=== PATIENT | male | born 1960 | race Caucasian/White ===

== ENCOUNTER → 2019-05-07 09:04 | Outpatient (BNVA) | payer OTHER, SELFPAY | PROVIDERS: Family Provider Family Medicine; PCP Family Medicine; Visit Provider Internal Medicine Rheumatology | DX: M06.00 Rheumatoid arthritis without rheumatoid factor, unspecified site (principal); Z79.899 Other long term (current) drug therapy; E27.1 Primary adrenocortical insufficiency; Z79.52 Long term (current) use of systemic steroids | CPT/HCPCS: 36415; 80076; 82565; 85025; 85651; 86140; 99214 ==

== ENCOUNTER → 2019-08-14 12:10 | Outpatient (BNVA) | payer OTHER, SELFPAY | PROVIDERS: Family Provider Family Medicine; PCP Family Medicine; Visit Provider Internal Medicine Rheumatology | DX: Z79.899 Other long term (current) drug therapy (principal) | CPT/HCPCS: 36415; 80076; 82565; 85025; 85651; 86140 ==

== ENCOUNTER → 2019-11-01 09:48 | Outpatient (BNVA) | payer OTHER, SELFPAY | PROVIDERS: Family Provider Family Medicine; PCP Family Medicine; Visit Provider Internal Medicine Rheumatology | DX: Z79.899 Other long term (current) drug therapy (principal) | CPT/HCPCS: 36415; 80076; 82565; 85025; 85651; 86140 ==

== ENCOUNTER → 2019-11-07 10:08 | Outpatient (BNVA) | payer OTHER, SELFPAY | PROVIDERS: Family Provider Family Medicine; PCP Family Medicine; Visit Provider Internal Medicine Rheumatology | DX: M06.00 Rheumatoid arthritis without rheumatoid factor, unspecified site (principal); Z79.899 Other long term (current) drug therapy; E27.1 Primary adrenocortical insufficiency; M81.0 Age-related osteoporosis without current pathological fracture; Z79.52 Long term (current) use of systemic steroids | CPT/HCPCS: 99214 ==

== ENCOUNTER → 2019-12-12 09:43 | Outpatient (BNVA) | payer OTHER, SELFPAY | PROVIDERS: Family Provider Family Medicine; PCP Family Medicine; Visit Provider Internal Medicine Rheumatology | DX: Z79.899 Other long term (current) drug therapy (principal) | CPT/HCPCS: 36415; 80076; 82565; 85025; 85651; 86140 ==

== ENCOUNTER → 2020-03-24 12:45 | Outpatient (BNVA) | payer OTHER, SELFPAY | PROVIDERS: Family Provider Family Medicine; PCP Family Medicine; Visit Provider Internal Medicine Rheumatology | DX: Z79.899 Other long term (current) drug therapy (principal) | CPT/HCPCS: 36415; 80076; 82565; 85025; 85651; 86140 ==

== ENCOUNTER → 2020-05-05 14:56 | Outpatient (BNVA) | payer OTHER, SELFPAY | PROVIDERS: Family Provider Family Medicine; PCP Family Medicine; Visit Provider Internal Medicine Rheumatology | DX: M06.00 Rheumatoid arthritis without rheumatoid factor, unspecified site (principal); E27.1 Primary adrenocortical insufficiency; Z79.899 Other long term (current) drug therapy; Z79.52 Long term (current) use of systemic steroids; M81.0 Age-related osteoporosis without current pathological fracture; Z85.46 Personal history of malignant neoplasm of prostate; Z87.891 Personal history of nicotine dependence | CPT/HCPCS: 99214 ==

== ENCOUNTER → 2020-10-21 09:14 | Outpatient (BNVA) | payer OTHER, SELFPAY | PROVIDERS: Family Provider Family Medicine; PCP Family Medicine; Visit Provider Internal Medicine Rheumatology | DX: E27.1 Primary adrenocortical insufficiency (principal); M06.00 Rheumatoid arthritis without rheumatoid factor, unspecified site; Z71.89 Other specified counseling; Z79.899 Other long term (current) drug therapy | CPT/HCPCS: 36415; 80076; 82565; 85025; 86140 ==

== ENCOUNTER → 2020-10-29 14:39 | Outpatient (BNVA) | payer OTHER, SELFPAY | PROVIDERS: Family Provider Family Medicine; PCP Family Medicine; Visit Provider Internal Medicine Rheumatology | DX: M06.00 Rheumatoid arthritis without rheumatoid factor, unspecified site (principal); Z79.899 Other long term (current) drug therapy; Z79.52 Long term (current) use of systemic steroids; E27.1 Primary adrenocortical insufficiency; M81.0 Age-related osteoporosis without current pathological fracture; Z85.46 Personal history of malignant neoplasm of prostate; Z87.891 Personal history of nicotine dependence | CPT/HCPCS: 99214 ==

== ENCOUNTER → 2021-01-28 13:07 | Outpatient (BNVA) | payer OTHER, SELFPAY | PROVIDERS: Family Provider Family Medicine; PCP Family Medicine; Visit Provider Internal Medicine Rheumatology | DX: E27.1 Primary adrenocortical insufficiency (principal); Z71.89 Other specified counseling; Z79.899 Other long term (current) drug therapy | CPT/HCPCS: 36415; 80076; 82565; 85025; 86140 ==

== ENCOUNTER → 2021-04-02 09:16 | Outpatient (BNVA) | payer OTHER, SELFPAY | PROVIDERS: Family Provider Family Medicine; PCP Family Medicine; Visit Provider Internal Medicine Rheumatology | DX: Z79.899 Other long term (current) drug therapy (principal); M06.00 Rheumatoid arthritis without rheumatoid factor, unspecified site | CPT/HCPCS: 36415; 80076; 82565; 85025; 86140 ==

== ENCOUNTER 2021-08-17 13:18 | Outpatient (CLI) | payer OTHER, SELFPAY ==
[2021-08-17 14:22] LABS: Basophils % 0.4 %; Eosinophils # 0.3 10^3/uL (0.0-0.8); Eosinophils % 4.3 %; Hematocrit 39.5 % (42.0-52.0); Hemoglobin 13.1 g/dL (11.7-16.6); Lymphocytes # 1.4 10^3/uL (0.8-4.8); Lymphocytes % 19.4 %; Mean Corpuscular HGB Conc 33.2 g/dL (30.0-36.0); Mean Corpuscular Hemoglobin 29.5 pg (28.0-34.0); Mean Platelet Volume 13.5 fL (7.4-10.4); Monocytes # 0.9 10^3/uL (0.2-0.9); Monocytes % 12.3 %; Neutrophils # 4.66 10^3/uL (1.8-7.7); Neutrophils % 63.3 %; Nucleated Red Blood Cells % 0 %; Platelet Count 161 10^3/cmm (130-400); Red Blood Count 4.44 10^6/uL (4.1-5.3); White Blood Count 7.4 10^3/uL (4.0-10.0)
[2021-08-17 14:50] LABS: Alanine Aminotransferase 14 U/L (0-41); Albumin Level 4.1 g/dL (3.5-5.2); Alkaline Phosphatase 107 IU/L (40-130); Aspartate Amino Transferase 20 U/L (0-40); Globulin 2.7 g/dL (1.3-4.6); Glomerular Filtration Rate 98.6 mL/min (90-130); Total Bilirubin 0.2 mg/dL (0.15-1.2); Total Protein 6.8 g/dL (6.6-8.7)
== END 2021-08-17 13:19 | disposition home or self-care (01) ==
LOC: LAB 13:20
PROVIDERS: Family Provider Family Medicine; PCP Family Medicine; Visit Provider Internal Medicine Rheumatology
DX: M06.00 Rheumatoid arthritis without rheumatoid factor, unspecified site (principal); Z79.899 Other long term (current) drug therapy
CPT/HCPCS: 80076; 82565; 85025; 86140

== ENCOUNTER 2021-12-25 12:58 | Outpatient (CLI) | payer OTHER, SELFPAY ==
[2021-12-25 13:45] LABS: Basophils # 0.1 10^3/uL (0.0-0.1); Basophils % 0.6 %; Eosinophils # 0.4 10^3/uL (0.0-0.8); Hematocrit 38.1 % (42.0-52.0); Hemoglobin 12.6 g/dL (11.7-16.6); Lymphocytes # 1.4 10^3/uL (0.8-4.8); Lymphocytes % 16.9 %; Mean Corpuscular HGB Conc 33.1 g/dL (30.0-36.0); Mean Corpuscular Hemoglobin 29.6 pg (28.0-34.0); Mean Corpuscular Volume 89.6 fl (80-94); Mean Platelet Volume 12.3 fL (7.4-10.4); Monocytes # 0.7 10^3/uL (0.2-0.9); Monocytes % 7.9 %; Neutrophils # 5.63 10^3/uL (1.8-7.7); Neutrophils % 68.1 %; Nucleated Red Blood Cells % 0 %; Platelet Count 183 10^3/cmm (130-400); Red Blood Count 4.25 10^6/uL (4.1-5.3); Red Cell Distribution Width 13.2 % (12.1-15.1); White Blood Count 8.3 10^3/uL (4.0-10.0)
[2021-12-25 14:12] LABS: Alanine Aminotransferase 19 U/L (0-41); Albumin Level 4.2 g/dL (3.5-5.2); Alkaline Phosphatase 107 U/L (40-130); Aspartate Amino Transferase 23 U/L (0-40); Globulin 2.8 g/dL (1.3-4.6); Glomerular Filtration Rate 98.3 mL/min (90-130); Total Bilirubin 0.2 mg/dL (0.15-1.2)
== END 2021-12-25 12:59 | disposition home or self-care (01) ==
LOC: LAB 13:01
PROVIDERS: PCP Family Medicine; Visit Provider Internal Medicine Rheumatology
DX: M06.00 Rheumatoid arthritis without rheumatoid factor, unspecified site (principal); Z79.899 Other long term (current) drug therapy
CPT/HCPCS: 36415; 80076; 82565; 85025; 86140

== ENCOUNTER 2022-03-10 12:26 | Outpatient (CLI) | payer OTHER, SELFPAY ==
[2022-03-10 13:04] LABS: Basophils # 0.1 10^3/uL (0.0-0.1); Basophils % 0.5 %; Eosinophils # 0.3 10^3/uL (0.0-0.8); Eosinophils % 3.5 %; Hematocrit 40.3 % (42.0-52.0); Hemoglobin 13.4 g/dL (11.7-16.6); Lymphocytes # 1.1 10^3/uL (0.8-4.8); Lymphocytes % 11.5 %; Mean Corpuscular HGB Conc 33.3 g/dL (30.0-36.0); Mean Corpuscular Hemoglobin 29.1 pg (28.0-34.0); Mean Corpuscular Volume 87.4 fl (80-94); Mean Platelet Volume 12.3 fL (7.4-10.4); Monocytes # 1.1 10^3/uL (0.2-0.9); Monocytes % 11.5 %; Neutrophils % 72.7 %; Nucleated Red Blood Cells % 0 %; Platelet Count 169 10^3/cmm (130-400); Red Blood Count 4.61 10^6/uL (4.1-5.3); White Blood Count 9.2 10^3/uL (4.0-10.0)
[2022-03-10 13:31] LABS: Alanine Aminotransferase 20 U/L (0-41); Alkaline Phosphatase 122 U/L (40-130); Aspartate Amino Transferase 21 U/L (0-40); Globulin 3.3 g/dL (1.3-4.6); Glomerular Filtration Rate 98.3 mL/min (90-130); Total Bilirubin 0.4 mg/dL (0.15-1.2); Total Protein 7.3 g/dL (6.6-8.7)
== END 2022-03-10 12:27 | disposition home or self-care (01) ==
LOC: LAB 12:28
PROVIDERS: PCP Family Medicine; Visit Provider Internal Medicine Rheumatology
DX: M06.00 Rheumatoid arthritis without rheumatoid factor, unspecified site (principal); Z79.899 Other long term (current) drug therapy
CPT/HCPCS: 80076; 82565; 85025; 86140

== ENCOUNTER → 2022-07-01 08:27 | Outpatient (BNVA) | payer MEDICARE, OTHER, SELFPAY | PROVIDERS: PCP Family Medicine; Visit Provider Internal Medicine | DX: E27.1 Primary adrenocortical insufficiency (principal); I10 Essential (primary) hypertension; M06.00 Rheumatoid arthritis without rheumatoid factor, unspecified site; Z79.899 Other long term (current) drug therapy | CPT/HCPCS: 36415; 80048; 80076; 84244; 85025; 99214 ==

== ENCOUNTER 2023-01-04 08:13 | Outpatient (CLI) | payer MEDICARE, OTHER, SELFPAY ==
[2023-01-04 09:10] LABS: Basophils # 0.1 10^3/uL (0.0-0.1); Basophils % 0.7 %; Eosinophils # 0.6 10^3/uL (0.0-0.8); Eosinophils % 8.4 %; Hematocrit 37.2 % (37-53); Lymphocytes # 1.7 10^3/uL (0.8-4.8); Lymphocytes % 25.3 %; Mean Corpuscular HGB Conc 32.8 g/dL (30-55); Mean Corpuscular Hemoglobin 29.3 pg (27-33); Mean Corpuscular Volume 89.4 fl (82-101); Mean Platelet Volume 12.5 fL (7.4-10.4); Monocytes % 14.3 %; Nucleated Red Blood Cells % 0 %; Platelet Count 175 10^3/cmm (157-399); Red Blood Count 4.16 10^6/uL (3.85-5.65); Red Cell Distribution Width 13.3 % (12.1-15.1); White Blood Count 6.87 10^3/uL (3.29-11.43)
[2023-01-04 09:41] LABS: Alanine Aminotransferase 19 U/L (0-41); Alkaline Phosphatase 105 U/L (40-130); Anion Gap 12.2 (5-19); Aspartate Amino Transferase 21 U/L (0-40); Blood Urea Nitrogen 10 mg/dL (8-23); Calcium 8.6 mg/dL (8.5-10.5); Carbon Dioxide 29 mmol/L (22-29); Chloride 108 mmol/L (98-107); Globulin 2.4 g/dL (1.3-4.6); Glomerular Filtration Rate 85.5 mL/min (90-130); Glucose 78 mg/dL (65-115); Osmolality Calculated 298 mOsm/kg (285-295); Potassium 4.2 mmol/L (3.5-5.1); Sodium 145 mmol/L (136-145); Total Bilirubin 0.3 mg/dL (0.15-1.2); Total Protein 6.4 g/dL (6.6-8.7)
== END 2023-01-04 08:14 | disposition home or self-care (01) ==
LOC: LAB 08:20
PROVIDERS: Internal Medicine Rheumatology; PCP Family Medicine; Visit Provider Internal Medicine
DX: E27.1 Primary adrenocortical insufficiency (principal); M06.00 Rheumatoid arthritis without rheumatoid factor, unspecified site; Z79.899 Other long term (current) drug therapy; I10 Essential (primary) hypertension
CPT/HCPCS: 36415; 80048; 80076; 84244; 85025; 86140

== ENCOUNTER → 2023-01-06 08:26 | Outpatient (BNVA) | payer MEDICARE, OTHER, SELFPAY | PROVIDERS: PCP Family Medicine; Visit Provider Internal Medicine | DX: E27.1 Primary adrenocortical insufficiency (principal); I10 Essential (primary) hypertension; Z79.899 Other long term (current) drug therapy; M06.00 Rheumatoid arthritis without rheumatoid factor, unspecified site; Z71.89 Other specified counseling | CPT/HCPCS: 99214 ==

== ENCOUNTER 2023-05-10 13:37 | Outpatient (CLI) | payer MEDICARE, OTHER, SELFPAY ==
[2023-05-10 14:37] LABS: Basophils % 0.6 %; Eosinophils # 0.3 10^3/uL (0.0-0.8); Eosinophils % 3.9 %; Hematocrit 42.5 % (37-53); Lymphocytes # 1.1 10^3/uL (0.8-4.8); Lymphocytes % 15.2 %; Mean Corpuscular HGB Conc 32.9 g/dL (30-55); Mean Corpuscular Hemoglobin 29.7 pg (27-33); Mean Platelet Volume 12.4 fL (7.4-10.4); Monocytes # 0.8 10^3/uL (0.2-0.9); Monocytes % 11.5 %; Neutrophils # 4.95 10^3/uL (1.8-7.7); Neutrophils % 68.5 %; Nucleated Red Blood Cells % 0 %; Platelet Count 148 10^3/cmm (157-399); Red Blood Count 4.72 10^6/uL (3.85-5.65); Red Cell Distribution Width 13.2 % (12.1-15.1); White Blood Count 7.22 10^3/uL (3.29-11.43)
[2023-05-10 14:59] LABS: Alanine Aminotransferase 30 U/L (0-41); Albumin Level 4.3 g/dL (3.5-5.2); Alkaline Phosphatase 140 U/L (40-130); Aspartate Amino Transferase 27 U/L (0-40); Globulin 3.5 g/dL (1.3-4.6); Glomerular Filtration Rate 75.7 mL/min (90-130); Total Bilirubin 0.3 mg/dL (0.15-1.2); Total Protein 7.8 g/dL (6.6-8.7)
== END 2023-05-10 13:38 | disposition home or self-care (01) ==
LOC: LAB 13:39
PROVIDERS: PCP Family Medicine; Visit Provider Internal Medicine Rheumatology
DX: M06.00 Rheumatoid arthritis without rheumatoid factor, unspecified site (principal); Z79.899 Other long term (current) drug therapy
CPT/HCPCS: 80076; 82565; 85025; 86140

== ENCOUNTER → 2023-08-25 08:50 | Outpatient (BNVA) | payer MEDICARE, OTHER, SELFPAY | PROVIDERS: PCP Family Medicine; Visit Provider Internal Medicine Rheumatology | DX: Z79.899 Other long term (current) drug therapy (principal); M06.0A Rheumatoid arthritis without rheumatoid factor, other specified site; E27.1 Primary adrenocortical insufficiency; Z71.89 Other specified counseling; L40.0 Psoriasis vulgaris | CPT/HCPCS: 36415; 80076; 82565; 85025; 86140; 99214 ==

== ENCOUNTER 2023-11-24 10:05 | Outpatient (CLI) | payer MEDICARE, OTHER, SELFPAY ==
[2023-11-24 10:31] LABS: Basophils # 0.1 10^3/uL (0.0-0.1); Basophils % 0.7 %; Eosinophils # 0.5 10^3/uL (0.0-0.8); Eosinophils % 6.6 %; Hematocrit 38.1 % (37-53); Lymphocytes # 1.8 10^3/uL (0.8-4.8); Lymphocytes % 23.8 %; Mean Corpuscular HGB Conc 34.1 g/dL (30-55); Mean Corpuscular Volume 87.8 fl (82-101); Mean Platelet Volume 12.2 fL (7.4-10.4); Monocytes # 1.5 10^3/uL (0.2-0.9); Monocytes % 19.4 %; Neutrophils # 3.72 10^3/uL (1.8-7.7); Neutrophils % 49.4 %; Nucleated Red Blood Cells % 0 %; Platelet Count 166 10^3/cmm (157-399); Red Blood Count 4.34 10^6/uL (3.85-5.65); Red Cell Distribution Width 13.2 % (12.1-15.1); White Blood Count 7.53 10^3/uL (3.29-11.43)
[2023-11-24 10:52] LABS: Alanine Aminotransferase 24 U/L (0-41); Albumin Level 4.2 g/dL (3.5-5.2); Alkaline Phosphatase 96 U/L (40-130); Aspartate Amino Transferase 21 U/L (0-40); Globulin 3.2 g/dL (1.3-4.6); Glomerular Filtration Rate 75.5 mL/min (90-130); Total Bilirubin 0.3 mg/dL (0.15-1.2); Total Protein 7.4 g/dL (6.6-8.7)
== END 2023-11-24 10:06 | disposition home or self-care (01) ==
LOC: LAB 10:07
PROVIDERS: PCP Family Medicine; Visit Provider Internal Medicine Rheumatology
DX: Z79.899 Other long term (current) drug therapy (principal); M06.00 Rheumatoid arthritis without rheumatoid factor, unspecified site
CPT/HCPCS: 36415; 80076; 82565; 85025; 86140

== ENCOUNTER → 2024-01-12 09:27 | Outpatient (BNVA) | payer MEDICARE, OTHER, SELFPAY | PROVIDERS: PCP Family Medicine; Visit Provider Internal Medicine Rheumatology | DX: M06.0A Rheumatoid arthritis without rheumatoid factor, other specified site (principal); E27.1 Primary adrenocortical insufficiency; L40.0 Psoriasis vulgaris; M81.0 Age-related osteoporosis without current pathological fracture; Z79.899 Other long term (current) drug therapy; Z71.85 Encounter for immunization safety counseling | CPT/HCPCS: 99214 ==

== ENCOUNTER → 2024-05-24 09:48 | Outpatient (BNVA) | payer MEDICARE, OTHER, SELFPAY | PROVIDERS: PCP Family Medicine; Visit Provider Internal Medicine Rheumatology | DX: M06.0A Rheumatoid arthritis without rheumatoid factor, other specified site (principal); Z79.899 Other long term (current) drug therapy; E27.1 Primary adrenocortical insufficiency; Z71.89 Other specified counseling; L40.0 Psoriasis vulgaris | CPT/HCPCS: 36415; 80076; 82565; 85025; 85651; 86140; 99214 ==

== ENCOUNTER → 2024-09-25 12:22 | Outpatient (BNVA) | payer MEDICARE, OTHER, SELFPAY | PROVIDERS: PCP Family Medicine; Visit Provider Internal Medicine Rheumatology | DX: M06.9 Rheumatoid arthritis, unspecified (principal); Z79.899 Other long term (current) drug therapy; E27.1 Primary adrenocortical insufficiency; Z71.89 Other specified counseling; L40.0 Psoriasis vulgaris; M06.0A Rheumatoid arthritis without rheumatoid factor, other specified site | CPT/HCPCS: 36415; 80076; 82565; 85025; 85651; 86140; 99214 ==

== ENCOUNTER 2024-10-26 09:39 | Oncology outpatient (recurring) (ONCR) | payer MEDICARE, OTHER, SELFPAY ==
--- NOTE | 2024-10-04 14:23 | N.ONRAD NP_ITS ---
Radiation Oncology New Patient Visit Patient: Pérez Bergeron MR#: [id number] : 1960 Age: 64 Sex: Male Dictated by: Dr. Gopi Burgos DO/ALFREDO/MARCO Date of Service: 10/04/2024 Referring Physician(s) : Dr. Cannon Diagnosis: M05.69 - rheumatoid arthritis of multiple sites with involvement of other organs and systems, Diagnosed 10/02/2024 (active).SERONEGATIVE RHEUMATOID ARTHRITIS X 10 YEARS, PRESENTLY ON ENBREL, ORENCIA HELPFUL BUT INSURANCE REFUSING TO COVER AND TREATMENT TOO COSTLY OTHERWISE, TAKES ALSO LEFLUNOMIDE THAT HELPS HIP PAIN, DX WITH ADDISION DISEASE X 33 YEARS- BID STERIODS 30-60 MG AM/10-20MG PM, HAND/SHOULDER PAIN 2-09/08, + SWELLING IN HANDS THAT DECREASE ROM, PRIOR SHOULDER SURGERY/ STAGE: N/A ICD-10: M05.69 Radiotherapy to date: Summary > NO prior radiation therapy. Chief Complaint / History of Present Illness: I have rheumatoid arthritis that was diagnosed some 10 years ago. Patient has tried Orencia but is unable to take it anymore due to insurance company not paying for it and he cannot afford to pay for personally. He also takes LEFLUNOMIDE/ENBREL daily. 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 When he has a flareup he typically doubles it to 60 mg / 20 mg. Patient has taken methotrexate in the past but could not take it due to severe GI intolerance. Patient understands LDRT for the treatment of RA. Current Medications: calcium carbonate (Calcium 600) 600 mg PO BID citalopram 10 mg PO DAILY clobetasol 0.05% 1 applic topical BID 2 weeks etanercept (Enbrel) 50 mg SUBCUT Q7D hydrocortisone 5 mg PO 5 tabs in am and 2 at hs; ibuprofen (Advil) 200 mg PO Q6H PRN [id number] 1000 mcg IM .monthly; leflunomide TAKE 1 TABLET BY MOUTH EVERY DAY lisinopril 10 mg PO DAILY multivitamin (One-A-Day Essential tablet) 1 tab PO DAILY pantoprazole TAKE 1 TABLET BY MOUTH EVERY DAY simvastatin 20 mg PO .hs sulfasalazine 0.5 grams PO BID tramadol 50 mg PO BID PRN Allergies: No known allergies Medical History: Plaque psoriasis Immunization counseling Chronic steroid use Sundance's disease No history of collagen vascular disease. No previous radiation therapy. Surgical History: History of tonsillectomy and adenoidectomy History of back surgery History of shoulder surgery - rotator cuff Family History: Mother Cancer Breast Osteoporosis Other CAD (coronary artery disease) Chronic kidney disease (CKD) Rheumatoid arthritis Denies family history of Diabetes Systemic lupus erythematosus (SLE) in adult Hypertension Social History: Patient works in [employer] as [employer]. Smoking and tobacco/nicotine status: never used tobacco/nicotine Alcohol intake: never Current Complaints / Review of Systems: . Vital Signs: Performed on 10/04/2024 1:20 PM BMI - 29.68 kg/m2 (high), Height - 71 in, Weight - 212.8 lbs, Temperature - 96.5 f, Pulse - 86 /min, Respiration - 17 /min, O2 Sat - 94 % (low), Pain - 0, Fatigue - 0 and BP - 116/ 67 mm(hg). Physical Exam: Alert and oriented and answers questions appropriately. Head is normocephalic without masses. Chest lungs are clear to auscultation. Abdomen is soft nontender with no hepatosplenomegaly. Extremities intact x 4. Mild swelling noted in the hands bilaterally. No ulnar deviation noted. No pain on palpation to the joints. Performance Status: KPS 100 Pathology: Primary, m05.69 - rheumatoid arthritis of multiple sites with involvement of other organs and systems, Diagnosed 10/02/2024 (active) . Lab: Imaging: See HPI Impression: M05.69 - rheumatoid arthritis of multiple sites with involvement of other organs and systems, Diagnosed 10/02/2024 (active).SERONEGATIVE RHEUMATOID ARTHRITIS X 10 YEARS, PRESENTLY ON ENBREL, ORENCIA HELPFUL BUT INSURANCE REFUSING TO COVER AND TREATMENT TOO COSTLY OTHERWISE, TAKES ALSO LEFLUNOMIDE THAT HELPS HIP PAIN, DX WITH ADDISION DISEASE X 33 YEARS- BID STERIODS 30-60 MG AM/10-20MG PM, HAND/SHOULDER PAIN 2-5/10, + SWELLING IN HANDS THAT DECREASE ROM, PRIOR SHOULDER SURGERY/ STAGE: N/A ICD-10: M05.69 Plan: LDRT BL HANDS 50cGy X 6 FXS=TOTAL 300cGy OPTIONS regarding treatment were discussed with the patient. Patient wishes to proceed. Limited studies discussed that were based on data. Patient signed informed consent under his own free will after all questions answered. Signed by: 10/04/2024 2:21:40 PM <<Signature on File>> Time spent with patient:30 MINUTES CPT Code: CPT Code:
--- NOTE | 2024-10-23 08:42 | ONCRAD TMN_ITS ---
Radiation Oncology Weekly Treatment Management Patient: Pérez Bergeron MR#: [id number] : 1960 Attending Physician: Brock Burgos Date of Service: 10/23/2024 Referring Physician(s) : Diagnosis: M05.69 - Rheumatoid arthritis of multiple sites with involvement of other organs and systems, Diagnosed 10/02/2024 (Active) Radiotherapy to date: Course: [facility] 2024, Treatment Site: [id number], Ref. ID: [id number], Energy: 6X, Dose/Fx (cGy): 50, #Fx: 3 / 6, Dose Correction (cGy): 0, Total Dose Delivered (cGy): 150, Start Date: 10/18/2024, End Date: 10/23/2024, Elapsed Days: 5 Course: [facility] 2024, Treatment Site: [id number], Ref. ID: [id number], Energy: 6X, Dose/Fx (cGy): 50, #Fx: 3 / 6, Dose Correction (cGy): 0, Total Dose Delivered (cGy): 150, Start Date: 10/18/2024, End Date: 10/23/2024, Elapsed Days: 5 Reason for visit: The patient is being seen today as part of their regularly scheduled weekly on treatment visits to assess for acute toxicities from radiotherapy. Review of Systems: Patient states he is not as sore and this not noting as much swelling in hands. He is a patient with Gooding's disease and takes twice daily steroids for long-term treatment. No voice complaints. Patient will complete treatment on October 26. Vital Signs: Performed on 10/23/2024 8:28 AM BMI - 29.903 kg/m2 (high), Height - 71 in, Weight - 214.4 lbs, Temperature - 96.6 f, Pulse - 81 /min, Respiration - 17 /min, O2 Sat - 96 %, Pain - 2, Fatigue - 0 and BP - 139/ 86 mm(hg). Physical Exam: Alert and oriented and answers questions appropriately. Skin is intact. Imaging: Radiation therapy imaging related to accurate target localization (i.e. KV, MV and CBCT) was reviewed. Appropriate changes, if any, were made to ensure treatment accuracy. Plan: Continue XRT Completes treatment on 10/26/2024. Signed by: Brock Burgos 10/23/2024 8:41:43 AM
--- NOTE | 2024-10-27 10:58 | N.ONRD TS_ITS ---
Radiation Oncology Treatment Summary Patient: Pérez Bergeron MR#: [id number] : 1960 Age: 64 Sex: Male Dictated by: Brock Burgos Date of Service: 10/26/2024 Referring Physician(s) : Diagnosis: M05.69 - Rheumatoid arthritis of multiple sites with involvement of other organs and systems, Diagnosed 10/02/2024 (Active) Radiotherapy to Date: Course: [facility] 2024, Treatment Site: [id number], Ref. ID: [id number], Energy: 6X, Dose/Fx (cGy): 50, #Fx: 6 / 6, Dose Correction (cGy): 0, Total Dose Delivered (cGy): 300, Start Date: 10/18/2024, End Date: 10/26/2024, Elapsed Days: 8 Course: [facility] 2024, Treatment Site: [id number], Ref. ID: [id number], Energy: 6X, Dose/Fx (cGy): 50, #Fx: 6 / 6, Dose Correction (cGy): 0, Total Dose Delivered (cGy): 300, Start Date: 10/18/2024, End Date: 10/26/2024, Elapsed Days: 8 Clinical Summary: The patient tolerated RT well. Patient states he is not as sore and he is not noting as much swelling in hands. He is a patient with [place]'s disease and takes twice daily steroids for long-term treatment. Plan: End of treatment today. Continue on the above medication until the skin reaction resolves. Follow up in one month. Signed by: Brock Burgos>10/27/2024 10:56:52 AM <<Signature on File>>
== END 2024-10-29 23:59 | disposition home or self-care (01) ==
PROVIDERS: PCP Family Medicine; Visit Provider Radiology Radiation Oncology
DX: M05.69 Rheumatoid arthritis of multiple sites with involvement of other organs and systems (principal); Z79.899 Other long term (current) drug therapy
CPT/HCPCS: 77280; 77285; 77300; 77321; 77334; 77336; 99204

== ENCOUNTER 2024-10-29 14:42 | Outpatient (CLI) | payer MEDICARE, OTHER, SELFPAY ==
[2024-10-29 16:05] LABS: Alanine Aminotransferase 24 U/L (0-41); Albumin Level 4.2 g/dL (3.5-5.2); Alkaline Phosphatase 109 U/L (40-130); Anion Gap 16.3 (5-19); Aspartate Amino Transferase 22 U/L (0-40); Blood Urea Nitrogen 15 mg/dL (8-23); Calcium 8.7 mg/dL (8.5-10.5); Carbon Dioxide 22 mmol/L (22-29); Chloride 96 mmol/L (98-107); Globulin 3.4 g/dL (1.3-4.6); Glomerular Filtration Rate 75.2 mL/min (90-130); Glucose 114 mg/dL (65-115); Osmolality Calculated 272 mOsm/kg (285-295); Potassium 4.3 mmol/L (3.5-5.1); Sodium 130 mmol/L (136-145); Total Bilirubin 0.2 mg/dL (0.15-1.2); Total Protein 7.6 g/dL (6.6-8.7)
== END 2024-10-29 14:43 | disposition home or self-care (01) ==
PROVIDERS: PCP Family Medicine; Visit Provider Internal Medicine
DX: E11.9 Type 2 diabetes mellitus without complications (principal)
CPT/HCPCS: 36415; 80053

== ENCOUNTER 2024-11-05 12:34 | Outpatient (CLI) | payer MEDICARE, OTHER, SELFPAY ==
[2024-11-05 14:31] LABS: Anion Gap 16.8 (5-19); Blood Urea Nitrogen 17 mg/dL (8-23); Calcium 9.0 mg/dL (8.5-10.5); Carbon Dioxide 22 mmol/L (22-29); Chloride 102 mmol/L (98-107); Glucose 119 mg/dL (65-115); Osmolality Calculated 285 mOsm/kg (285-295); Potassium 4.8 mmol/L (3.5-5.1); Sodium 136 mmol/L (136-145); Thyroid Stimulating Hormone 2.85 uIU/mL (0.27-4.20); Vitamin B12 560 pg/mL (232-1245)
[2024-11-05 14:52] LABS: Free T4 Free Thyroxine 0.85 ng/dL (0.82-1.77)
== END 2024-11-05 12:35 | disposition home or self-care (01) ==
LOC: LAB 12:35
PROVIDERS: PCP Family Medicine; Visit Provider Internal Medicine
DX: Z79.899 Other long term (current) drug therapy (principal); E27.1 Primary adrenocortical insufficiency; I10 Essential (primary) hypertension; L40.0 Psoriasis vulgaris
CPT/HCPCS: 36415; 80048; 82306; 82607; 84439; 84443

== ENCOUNTER 2024-11-22 09:51 | Oncology outpatient (recurring) (ONCR) | payer MEDICARE, OTHER, SELFPAY ==
--- NOTE | 2024-11-22 10:23 | ONCRAD EPV_ITS ---
Radiation Oncology Established Patient Visit Patient: Pérez Bergeron [id number] : 1960 Age: 64 Sex: Male Dictated by: Dr. Brock Burgos Date of Service: 11/22/2024 Referring Physician(s) : Diagnosis: M05.69 - Rheumatoid arthritis of multiple sites with involvement of other organs and systems, Diagnosed 10/02/2024 (Active) Radiotherapy to Date: Course: [facility] 2024, Treatment Site: [id number], Ref. ID: [id number], Energy: 6X, Dose/Fx (cGy): 50, #Fx: 6 / 6, Dose Correction (cGy): 0, Total Dose Delivered (cGy): 300, Start Date: 10/18/2024, End Date: 10/26/2024, Elapsed Days: 8 Course: [facility] 2024, Treatment Site: [id number], Ref. ID: [id number], Energy: 6X, Dose/Fx (cGy): 50, #Fx: , Dose Correction (cGy): 0, Total Dose Delivered (cGy): 300, Start Date: 10/18/2024, End Date: 10/26/2024, Elapsed Days: 8 Current History: This is a pleasant 64-year-old male who underwent treatment to bilateral hands for refractory treatment for rheumatoid arthritis. Patient received a total dose of 300 cGy in 6 fractions and completed this on 10/26/2024. Patient states that he does not hurt much anymore. He is able to do more with his hands without problems. He also notes generalized decrease in pain in other joint sites. Current Medications: calcium carbonate (Calcium 600) 600 mg PO BID citalopram 10 mg PO DAILY clobetasol 0.05% 1 applic topical BID 2 weeks etanercept (Enbrel) 50 mg SUBCUT Q7D hydrocortisone 5 mg PO 5 tabs in am and 2 at hs; ibuprofen (Advil) 200 mg PO Q6H PRN [id number] 1000 mcg IM .monthly; leflunomide TAKE 1 TABLET BY MOUTH EVERY DAY lisinopril 10 mg PO DAILY multivitamin (One-A-Day Essential tablet) 1 tab PO DAILY pantoprazole TAKE 1 TABLET BY MOUTH EVERY DAY simvastatin 20 mg PO .hs sulfasalazine 0.5 grams PO BID tramadol 50 mg PO BID PRN Allergies: No known allergies. Current Complaints / Review of Systems: . Vital Signs: Performed on 11/22/2024 10:05 AM BMI - 30.042 kg/m2 (high), Height - 71 in, Weight - 215.4 lbs, Temperature - 97.3 f, Pulse - 77 /min, Respiration - 17 /min, O2 Sat - 95 % (low), Pain - 0, Fatigue - 0 and BP - 128/ 83 mm(hg). Physical Exam: General: Alert and oriented x 3. No acute distress. HEENT: Normocephalic, atraumatic. Extraocular Movements Intact: Pupils Equal, Round, Reactive to Light and Accommodation: Sclerae anicteric. Oral cavity is clear without lesions, masses or ulcers. NECK: Supple without supraclavicular or jugular lymphadenopathy. LUNGS: Clear to auscultation bilaterally without rales, rhonchi or wheeze. HEART: Regular rate and rhythm, normal S1 and S2 without murmur, gallop or rub. MUSCULOSKELETAL: No tenderness or percussion pain over the axial skeleton, scapulae or pelvis. ABDOMEN: Soft, nontender, nondistended without masses or organomegaly. Bowell sounds are present. EXTREMITIES: No peripheral edema is identified. Limited motor and sensory examination are grossly intact and symmetric bilaterally. No significant swelling in the hands bilaterally. No point tenderness. NEUROLOGIC: Cranial nerves II ???XII are grossly intact. Normal sensation, strength 5/5 in all extremities, normal gait, no ataxia. Performance Status: Lab: None pending. Pathology: Primary, m05.69 - rheumatoid arthritis of multiple sites with involvement of other organs and systems, Diagnosed 10/02/2024 (active) . Imaging: See HPI Impression: RA refractory to prior treatments Good response to low-dose XRT PLAN: RTC in 3 months or sooner if need be. If positive for response remains we will discharge him to rheumatology only after that. Signed by: 11/22/2024 10:22:46 AM <<Signature on File>> Time spent with patient: 15 minutes. Global charges send affect CPT Code: CPT Code:
== END 2024-11-29 23:59 | disposition home or self-care (01) ==
PROVIDERS: PCP Family Medicine; Visit Provider Radiology Radiation Oncology
DX: M05.69 Rheumatoid arthritis of multiple sites with involvement of other organs and systems (principal)
CPT/HCPCS: 99024; 99214

== ENCOUNTER → 2025-01-08 10:20 | Outpatient (BNVA) | payer MEDICARE, OTHER, SELFPAY | PROVIDERS: PCP Family Medicine; Visit Provider Internal Medicine | DX: E27.1 Primary adrenocortical insufficiency (principal); Z79.52 Long term (current) use of systemic steroids; I10 Essential (primary) hypertension | CPT/HCPCS: 99214 ==

== ENCOUNTER 2025-01-31 09:01 | Outpatient (CLI) | payer MEDICARE, OTHER, SELFPAY ==
[2025-01-31 10:41] LABS: Alanine Aminotransferase 28 U/L (0-41); Albumin Level 4.0 g/dL (3.5-5.2); Alkaline Phosphatase 112 U/L (40-130); Anion Gap 11.8 (5-19); Aspartate Amino Transferase 28 U/L (0-40); Blood Urea Nitrogen 7 mg/dL (8-23); Calcium 8.4 mg/dL (8.5-10.5); Carbon Dioxide 29 mmol/L (22-29); Chloride 105 mmol/L (98-107); Globulin 3.0 g/dL (1.3-4.6); Glucose 81 mg/dL (65-115); Osmolality Calculated 291 mOsm/kg (285-295); Potassium 3.8 mmol/L (3.5-5.1); Sodium 142 mmol/L (136-145); Total Protein 7.0 g/dL (6.6-8.7)
[2025-01-31 11:43] LABS: Hematocrit 39.3 % (37-53); Hemoglobin 13.00 g/dL (11.27-16.99); Mean Corpuscular HGB Conc 33.1 g/dL (30-55); Mean Corpuscular Hemoglobin 30.0 pg (27-33); Mean Corpuscular Volume 90.6 fl (82-101); Nucleated Red Blood Cells % 0 %; Platelet Count 163 10^3/cmm (157-399); Red Blood Count 4.34 10^6/uL (3.85-5.65); White Blood Count 5.61 10^3/uL (3.29-11.43)
== END 2025-01-31 09:02 | disposition home or self-care (01) ==
PROVIDERS: Absent Provider Internal Medicine; PCP Family Medicine; Visit Provider Internal Medicine Rheumatology
DX: E11.9 Type 2 diabetes mellitus without complications (principal); E27.1 Primary adrenocortical insufficiency; I10 Essential (primary) hypertension; Z79.899 Other long term (current) drug therapy
CPT/HCPCS: 36415; 80053; 82248; 84244; 85025; 85651; 86140

== ENCOUNTER → 2025-02-06 13:52 | Outpatient (BNVA) | payer MEDICARE, OTHER, SELFPAY | PROVIDERS: PCP Family Medicine; Visit Provider Internal Medicine Rheumatology | DX: M06.0A Rheumatoid arthritis without rheumatoid factor, other specified site (principal); Z79.899 Other long term (current) drug therapy; E27.1 Primary adrenocortical insufficiency; Z79.52 Long term (current) use of systemic steroids; Z71.85 Encounter for immunization safety counseling; L40.0 Psoriasis vulgaris; Z85.46 Personal history of malignant neoplasm of prostate | CPT/HCPCS: 99214 ==